=== PATIENT | female | born 1960 | race Caucasian/White ===

== ENCOUNTER 2016-11-13 23:55 | Emergency (ER) | payer BC ==
[~2016-11-13] VITALS: Ht 170.2 cm; Wt 77.0 kg
[~2016-11-13 23:55] MED LIST: MIRALAX17 GM PO; ULTRAM50 MG PO; ZOFRAN ODT4 MG PO
[2016-11-14 01:23] LABS: HEMATOCRIT 40.2 % (36.0-46.0); MCH 29.6 PG (29.0-34.0); MCHC 34.6 G/DL (30.0-36.0); MCV 85.7 FL (83-99); MEAN PLAT.VOLUME 10.2 uM^3 (9.5-12.4); PLATELET COUNT 192 K/uL (156-360); RBC DIS.WIDTH-CV 12.6 % (11.8-14.6); RBC DIS.WIDTH-SD 38.8 % (39-53); RED BLOOD COUNT 4.69 M/uL (3.80-5.20); WHITE BLOOD COUNT 6.4 K/uL (4.1-10.2)
[2016-11-14 01:35] LABS: CHLORIDE 106 mEq/L (99-109); POTASSIUM 3.7 mEq/L (3.7-5.4); SODIUM 142 mEq/L (136-147)
[2016-11-14 01:37] LABS: GLUCOSE 98 mg/dL (70-99)
[2016-11-14 01:39] LABS: ANION GAP 15 MEQ/L (2-14)
[2016-11-14 01:41] LABS: GFR ESTIMATE (CALCULATED) > 59 mL/min/
[2016-11-14 01:42] LABS: UREA NITROGEN (BUN) 21 mg/dL (9-23)
[2016-11-14 01:47] LABS: TROP-I INTERPRETATION NEGATIVE; TROPONIN-I < 0.01 ng/mL (0.0-0.30)
[2016-11-14 04:27] LABS: TROP-I INTERPRETATION NEGATIVE; TROPONIN-I < 0.01 ng/mL (0.0-0.30)
[2016-11-14 04:53] VITALS: BP 120/72
== END 2016-11-14 05:01 | disposition home or self-care (01) ==
LOC: EME 23:55
PROVIDERS: Emergency Medicine
DX: R07.9 Chest pain, unspecified (principal); R00.2 Palpitations; J45.909 Unspecified asthma, uncomplicated; E78.5 Hyperlipidemia, unspecified; Z87.891 Personal history of nicotine dependence; Z88.1 Allergy status to other antibiotic agents; Z88.3 Allergy status to other anti-infective agents
CPT/HCPCS: 71020; 80048; 84484; 85027; 93005; 99281; 99284

== ENCOUNTER 2017-11-12 17:54 | Inpatient (IN) | payer BC ==
[~2017-11-12] VITALS: Ht 170.2 cm; Wt 78.8 kg
[2017-11-12 18:27] LABS: HEMATOCRIT 44.6 % (36.0-46.0); HEMOGLOBIN 15.2 G/DL (11.9-15.5); MCH 30.2 PG (29.0-34.0); MCHC 34.1 G/DL (30.0-36.0); MCV 88.5 FL (83-99); PLATELET COUNT 238 K/uL (156-360); RBC DIS.WIDTH-CV 12.5 % (11.8-14.6); RBC DIS.WIDTH-SD 40.2 % (39-53); RED BLOOD COUNT 5.04 M/uL (3.80-5.20); WHITE BLOOD COUNT 6.9 K/uL (4.1-10.2)
[2017-11-12 18:39] LABS: CHLORIDE 105 mEq/L (99-109); POTASSIUM 3.8 mEq/L (3.7-5.4); SODIUM 140 mEq/L (136-147)
[2017-11-12 18:41] LABS: GLUCOSE 106 mg/dL (70-99)
[2017-11-12 18:45] LABS: CREATININE 0.8 mg/dL (0.6-1.3); GFR ESTIMATE (CALCULATED) > 59 mL/min/; UREA NITROGEN (BUN) 22 mg/dL (9-23)
[2017-11-12 18:47] LABS: TROP-I INTERPRETATION NEGATIVE; TROPONIN-I 0.02 ng/mL (0.0-0.30)
[2017-11-12] MEDS ORDERED: SYNTHROID150 MCG PO ×2 (18:48→21:15)
[2017-11-12] MEDS ORDERED: NEURONTIN600 MG PO (18:49)
[2017-11-12] MEDS ORDERED: ADDERALL XR 1010 MG PO ×2 (18:49→21:02)
[2017-11-12] MEDS ORDERED: HORIZANT600 MG PO (18:49)
[2017-11-12] MEDS ORDERED: DICLOFENAC SOD100 MG PO (18:50)
[2017-11-12] MEDS ORDERED: OXYBUTYNIN CHLO15 MG PO (18:50)
[2017-11-12] MEDS ORDERED: PROZAC20 MG PO (18:51)
[2017-11-12] MEDS ORDERED: OMEPRAZOLE40 M1 PO (18:51)
[2017-11-12 21:06] LABS: PTT 28.8 SEC (25-37)
[2017-11-12] MEDS ORDERED: SYNTHROID25 MCG PO (21:14)
[2017-11-12] MEDS ORDERED: NASACORT10.8 ML BOTH NARES (21:16)
[2017-11-12] MEDS ORDERED: ALLEGRA-D 241 TABLET PO (21:16)
[2017-11-12] MEDS ORDERED: CALCIUM WITH M1 EAC2 PO (21:21)
[2017-11-12] MEDS ORDERED: POTASSIUM-9999 MG PO (21:21)
[2017-11-12] MEDS ORDERED: GREEN TEA CAPL1 EACH PO (21:21)
[2017-11-12] MEDS ORDERED: VITAMIN D33000 UNIT PO (21:22)
[2017-11-12] MEDS ORDERED: VITAMIN E400 UNIT PO (21:23)
[2017-11-12] MEDS ORDERED: PYRIDOXINE HCL100 MG PO (21:23)
[2017-11-12] MEDS ORDERED: VITAMIN B-1000 MCG/1 SL (21:24)
[2017-11-12] MEDS ORDERED: GLUCOSA-CHOND-1 EACH PO (21:26)
[2017-11-12 21:31] LABS: THYROTROPIN (TSH) 2.1 MIU/L (0.4-5.5)
[2017-11-12 22:40] VITALS: BP 122/58
[2017-11-13 01:08] LABS: TROP-I INTERPRETATION NEGATIVE; TROPONIN-I 0.02 ng/mL (0.0-0.30)
[2017-11-13 02:30] VITALS: BP 104/52
[2017-11-13 07:47] LABS: TROP-I INTERPRETATION NEGATIVE; TROPONIN-I 0.01 ng/mL (0.0-0.30)
[2017-11-13 09:02] VITALS: BP 113/56
[2017-11-13 12:04] VITALS: BP 113/57
[2017-11-13] MEDS ORDERED: CARDIZEM CD,CA240 MG PO ×2 (12:55→13:02)
[2017-11-13] MEDS ORDERED: PROAIR RESPICL90 MCG IH (12:55)
== END 2017-11-13 14:41 | disposition home or self-care (01) | DRG 310 ==
LOC: EME 17:54 → 4EAST 21:20 → EDOF 21:20 → ENRESERV 21:22 → 4EAST 22:41
PROVIDERS: Emergency Medicine; Nurse Practitioner Adult Health
DX: I48.4 Atypical atrial flutter (principal); I48.91 Unspecified atrial fibrillation; E78.5 Hyperlipidemia, unspecified; E87.6 Hypokalemia; J45.909 Unspecified asthma, uncomplicated; G25.81 Restless legs syndrome; E89.0 Postprocedural hypothyroidism; K21.9 Gastro-esophageal reflux disease without esophagitis; M19.90 Unspecified osteoarthritis, unspecified site; Z87.891 Personal history of nicotine dependence; Z90.710 Acquired absence of both cervix and uterus
CPT/HCPCS: 71046; 80048; 84443; 84484; 85027; 85610; 85730; 93005; 93306; 99281; 99285